=== PATIENT | male | born 1995 | race Caucasian/White ===

== ENCOUNTER 2019-07-27 11:33 | Emergency (ER) | payer OTHER, SELFPAY ==
[2019-07-27 12:00] VITALS: BP 129/61; PULSE 112; RESP 18; TEMP 38.6; O2SAT 98
--- NOTE | 2019-07-27 12:08 | ED.URI ---
HPI - URI/Sore Throat General Chief Complaint: Upper Respiratory Infection Stated Complaint: Flu like symptoms Time Seen by Provider: 07/27/19 12:10 Source: patient and family History of Present Illness HPI Narrative: PATIENT PRESENTS WITH COUGH, FEVER, RUNNY NOSE AND BODY ACHES FOR THE PAST TWO DAYS. NO SHORTNESS OF BREATH AND NO CHEST PAIN. MD elicited complaint: fever, cough, rhinorrhea and nasal congestion Related Data Allergies Allergy/AdvReac Type Severity Reaction Status Date / Time No Known Drug Allergies Allergy Unknown none Verified 07/27/19 12:07 Review of Systems Review of Systems: Narrative: CONSTITUTIONAL: Denies fever, chills, or sweats. EYES: Denies visual changes, redness, or discharge. ENT: Denies rhinorrhea, congestion, sore throat, or otalgia. CARDIOVASCULAR: Denies chest pain, palpitations, or edema. RESPIRATORY: Denies cough or dyspnea. GASTROINTESTINAL: Denies abdominal pain, nausea, vomiting, or diarrhea. GENITOURINARY: Denies dysuria or hematuria. SKIN: Denies rash or itching. MUSCULOSKELETAL: Denies back pain, joint pain, or myalgia. NEUROLOGIC: Denies headache, numbness, or weakness. PSYCHIATRIC: Denies anxiety or depression. PMFSH Comments At time of signature, agree with nursing past medical, surgical, social and family history. There is no relevant family history pertinent to the presenting complaint Exam Narrative: Exam Narrative: GENERAL: Well-appearing, well-nourished, and in no acute distress. HEAD: Normocephalic, atraumatic. EYES: PERRLA and EOMI. ENT: Nares clear, no rhinorrhea or epistaxis. Mucous membranes moist.MILD PHARYNGEAL ERYTHEMA NO EXUDATE NO TRISMUS NO DROOLING ABLE TO OPEN MOUTH FULLY NECK: Supple. CHEST: Clear to auscultation. No respiratory distress. HEART: Regular rate and rhythm. No murmur heard. Normal peripheral pulses. ABDOMEN: Soft, nontender, nondistended, normal active bowel sounds. EXTREMITIES: Normal range of motion. No edema. SKIN: Warm, dry, no rash. NEURO: No focal deficits. Alert and oriented x3. Amber Coma Scale Eye Opening: Spontaneous 4 Britton Coma Scale Motor: Obeys Commands 6 Britton Coma Scale Verbal: Oriented 5 Britton Coma Scale Total 15 Course Vital Signs Vital signs: Vital Signs Temperature 38.6 C H 07/27/19 12:00 Pulse Rate 112 H 07/27/19 12:00 Respiratory Rate 18 07/27/19 12:00 Blood Pressure 129/61 07/27/19 12:00 Pulse Oximetry 98 07/27/19 12:00 Temperature 38.6 C H 07/27/19 12:00 Pulse Rate 112 H 07/27/19 12:00 Respiratory Rate 18 07/27/19 12:00 Blood Pressure 129/61 07/27/19 12:00 Pulse Oximetry 98 07/27/19 12:00 MDM - URI/Sore Throat Differential Diagnosis Differential diagnosis: Likely upper respiratory infection, croup, otitis media, sinusitis, viral infection and influenza Lab Data Labs: Strep Screen Presumptive Negative *(Reference Range: Negative)* Critical Care Time Critical Care Time Critical Care Time: No Discharge Plan Discharge Clinical Impression: Pharyngitis, Tonsillar exudate Upper respiratory infection Qualifiers: URI type: unspecified viral URI Qualified Code(s): J06.9 - Acute upper respiratory infection, unspecified Patient Disposition: Home, Self-Care Condition: Stable Instructions: Antibiotic Form Additional Instructions: Increase fluids especially juices and water [id number] cough and cold medicine of your choice for your symptoms Salt water gargles, throat lozenges or throat sprays as desired change toothbrush in 3-5 days Antibiotic as directed--finished the medication It may take the antibiotic 2-3 days to control the fever/symptoms ) You tested positive for Group A strep. Infection control: *Take the entire course of antibiotics. *Throw away your current toothbrush and begin using a new toothbrush in 48 hours in order to prevent re-infection. If anyone else's toothbrush is stored near yours, they sh
== END 2019-07-27 12:55 | disposition home or self-care (01) ==
PROVIDERS: Emergency Provider Nurse Practitioner Family; PCP Internal Medicine
DX: J02.9 Acute pharyngitis, unspecified (principal); J06.9 Acute upper respiratory infection, unspecified
CPT/HCPCS: 87081; 87880; 99213; G0463